=== PATIENT | female | born 1990 | race Caucasian/White ===

== ENCOUNTER → 2017-03-20 | Outpatient (CLI) | payer MEDICAID | LOC: HPND 07:46 | PROVIDERS: ATTEND Obstetrics & Gynecology | DX: O35.8XX0 Maternal care for other (suspected) fetal abnormality and damage, not applicable or unspecified (principal); O26.892 Other specified pregnancy related conditions, second trimester; I27.0 Primary pulmonary hypertension; Z3A.23 23 weeks gestation of pregnancy | CPT/HCPCS: 76811 ==

== ENCOUNTER 2017-07-04 07:19 | Inpatient (IN) | payer MEDICAID ==
[2017-07-04] VITALS (37 sets, daily range): BP systolic 115–148; BP diastolic 50–93; PULSE 71–104; RESP 18–20; TEMP 97.6–98.5
[~2017-07-04] VITALS: Ht 162.6 cm; Wt 81.0 kg
[2017-07-04] MEDS ORDERED: LACTATED RINGER'S 1000 ML INJ 1,000 ML IV PRN (08:20)
[2017-07-04] MEDS ORDERED: SODIUM CHLORID 0.9% 500 ML INJ 500 ML IV PRN (08:30)
[2017-07-04] MEDS ORDERED: ONDANSETRON HCL 4 MG/2 ML VIAL IV PUSH PRN (08:30)
[2017-07-04] MEDS ORDERED: OXYTOCIN 30 UNITS-500ML PREMIX 500 ML IV SCH (08:30)
[2017-07-04] MEDS ORDERED: MINERAL OIL 10 ML VIAL TOPICAL PRN (08:30)
[2017-07-04] MEDS ORDERED: LIDOCAINE HCL 1% 50 ML VIAL I-DERMAL PRN (08:30)
[2017-07-04] MEDS ORDERED: PENICILLIN G POTASSIUM INJ 5,000,000 UNITS in SODIUM CHLORIDE 0.9% INJ 100 ML IV ONE (08:30)
[2017-07-04] MEDS ORDERED: LIDOCAINE HCL 1% 50 ML VIAL INFIL PRN (08:30)
[2017-07-04] MEDS ORDERED: OXYTOCIN 30 UNITS-500ML PREMIX 500 ML IV ONE (08:30)
[2017-07-04] MEDS ORDERED: CITRIC ACID-SODIUM CITRATE LIQ 30 ML UDC PO SCH (08:30)
--- NOTE | 2017-07-04 08:30 | PD ---
HPI Chief Complaint SROM Date Seen: Jul 04, 2017 Time Seen: 08:23 Travel History International Travel<30 Days: No Contact w/Intl Traveler<30Days: No Known Affected Area: No History of Present Illness HPI Pt is a 27y/o G1 @ 38.6wks. She has PNC with Dr. Bain. She presents to the hospital with c/o ROM this morning at 5am, clear fluid. Infrequent ctx. No VB. +FM. 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 Weeks Gestation: 38 Para: 0 : 1 History Past Medical History Narrative Medical HSV+ serology Obstetric History Obstetric History 1. current Past Surgical History Surgical History: No Previous Surgery Family History Family History: Negative Social History Alcohol Use: No Tobacco Use: No Substance Abuse: No Allergies-Medications (Allergen,Severity, Reaction): Coded Allergies: No Known Allergies (Verified Allergy, Unknown, 07/04/17) Review of Systems Except as stated in HPI: all other systems reviewed are Neg Physical Exam Narrative General: well developed, well nourished, no acute distress HEENT: normocephalic atraumatic, extraocular movements intact, neck supple Abdomen: soft, gravid, nontender, nondistended Uterus: fundus term Extremities: full range of motion Skin: normal coloration, no rashes, no suspicious skin lesions noted Neurologic: cranial nerves 2-12 grossly intact, normal muscle tone, normal gait Psychiatric: normal mood and affect, appropriate FHTs: 130, +accels, no decels, moderate variability, reactive [place]: ctx q7-8m Cvx: 3-4//-2, +amnisure Data Data Vital Signs Reviewed: Yes Orders Orders Ob (2e) Additional Admit Info (07/04/17 08:00) Vital Signs (Adult) .ON ADMISSION (07/04/17 08:20) ^ Labor Status (07/04/17 08:20) ^ Non Stress Test (07/04/17 08:20) Pamg-1 Test .ONCE (07/04/17 08:20) Admit To Inpatient (07/04/17 ) Vital Signs (Adult) .Per protocol (07/04/17 08:20) Heart (07/04/17 08:20) Amnioinfusion (07/04/17 08:20) Urinary Catheter Management .ONCE (07/04/17 08:20) Diet Liquid (07/04/17 Breakfast) Lactated Ringer's 1000 Ml Inj (Lr 1000 M (07/04/17 08:20) Lactated Ringer's 1000 Ml Inj (Lr 1000 M (07/04/17 08:20) Sodium Chlorid 0.9% 500 Ml Inj (Ns 500 M (07/04/17 08:30) Sodium Chlor 0.9% 1000 Ml Inj (Ns 1000 M (07/04/17 08:40) Lidocaine 1% Inj (50 Ml) (Xylocaine 1% I (07/04/17 08:30) Citric Acid-Sodium Citrate Liq (Bicitra (07/04/17 08:30) Ondansetron Inj (Zofran Inj) (07/04/17 08:30) Fentanyl Inj (Fentanyl Inj) (07/04/17 08:30) Fentanyl Inj (Fentanyl Inj) (07/04/17 08:30) Penicillin G Potassium Inj (Pfizerpen-G (07/04/17 08:30) Penicillin G Potassium Inj (Pfizerpen-G (07/04/17 12:30) Complete Blood Count With Diff (07/04/17 08:20) Hold Clot (07/04/17 08:20) Abo/Rh Blood Type (07/04/17 08:20) Urinalysis - C+S If Indicated (07/04/17 08:20) Drug Screen, Random Urine (07/04/17 08:20) Resp Oxygen Non Rebreathe Mask (07/04/17 ) ^ Epidural / Intrathecal Infus (07/04/17 08:20) Oxytocin 30 Units-500ml Premix (Pitocin (07/04/17 08:30) Lidocaine 1% Inj (50 Ml) (Xylocaine 1% I (07/04/17 08:30) Light Mineral Oil (Muri-Lube Oil) (07/04/17 08:30) Inpatient Certification (07/04/17 ) ^ Non Stress Test (07/04/17 08:20) Response To Medication .Post New Med Administration, Reaction (07/04/17 08:20) ^ Discontinue Medication (07/04/17 08:20) Oxytocin Drip (2-2-30) (07/04/17 08:30) Group B Strep: Positive MDM Plan 27y/o G1 @ 38.6wks with PROM, GBS+, HSV+ serology. -- cat 1 tracing -- cvx 3-/2 -- admit to L&D -- CLD, epidural/iraheta PRN -- pitocin augmentation -- PCN for GBS -- no h/o outbreaks, no lesions or prodromal symptoms Dr. Bain (rehab director occupational therapist) notified of pt status and agrees with the plan of care. Courtesy orders placed. She will assume care of the patient. Diagnosis Diagnosis: Primary Impression: 38 weeks gestation of Additional Impressions: PROM with onset of labor within 24 hours of rupture GBS (group B Streptococcus carrier), +RV culture, currently HSV-2 seropositive Kay Simpson MD Jul 04, 2017 08:30
[2017-07-04] MEDS ORDERED: SODIUM CHLOR 0.9% 1000 ML INJ 1,000 ML IV PRN (08:40)
[2017-07-04 08:50] LABS: BACTERIA, URINE RARE /hpf; BLOOD, URINE NEG (NEG); COMMENT (UR) CULT NOT INDICATED; CULTURE IF INDICATED CULT NOT INDICATED; GLUCOSE,URINE NEG (NEG); KETONE, URINE NEG (NEG); NITRITE,URINE NEG (NEG); PH, URINE 6.5 (5.0-8.5); SQUAMOUS EPITHELIAL CELL URINE 4 /hpf (0-5); URINE COLOR LIGHT-YELLOW (YELLW/STRAW)
[2017-07-04 08:50] LABS: BASOPHIL # 0.1 TH/MM3 (0-0.2); BASOPHIL % 0.7 % (0.0-2.0); EOSINOPHIL # 0.1 TH/MM3 (0-0.4); HEMATOCRIT 38.3 % (35.0-46.0); HEMO FLAGS DIFF FINAL; LYMPH % 24.6 % (9.0-44.0); MEAN CELL VOLUME 88.9 FL (80.0-100.0); MEAN CORPUSCULAR HEMOGLOBIN 29.8 PG (27.0-34.0); MEAN CORPUSCULAR HGB CONC 33.5 % (32.0-36.0); MONO % 7.8 % (0.0-8.0); NEUT % 65.9 % (16.0-70.0); PLATELET COUNT 138 TH/MM3 (150-450); RED BLOOD COUNT 4.31 MIL/MM3 (4.00-5.30); RED CELL DISTRIBUTION WIDTH 14.2 % (11.6-17.2); WHITE BLOOD COUNT 12.2 TH/MM3 (4.0-11.0)
[2017-07-04] MEDS: LACTATED RINGER'S 1000 ML INJ 1,000 ML IV SCH ×2 (08:52→13:02)
[2017-07-04] MEDS ORDERED: PRENTAB7 (08:56)
[2017-07-04] MEDS ORDERED: VALT500T PO (08:56)
[2017-07-04] MEDS ORDERED: fentaNYL 2MCG-BUPIV 0.125% INJ 100 ML ONE (12:18)
[2017-07-04] MEDS: PENICILLIN G POTASSIUM INJ 2,500,000 UNITS in SODIUM CHLORIDE 0.9% INJ 100 ML IV SCH ×3 (13:02→20:57)
[2017-07-04] MEDS ORDERED: NO SYSTEM NARCOTICS PRN (13:30)
[2017-07-04] MEDS ORDERED: ePHEDrine/NS 25 MG/5 ML SYR IV PUSH PRN (13:30)
[2017-07-04] MEDS ORDERED: DO NOT ADMINISTER ANTICOAGULANTS PRN (13:30)
[2017-07-04] MEDS ORDERED: fentaNYL 2MCG-BUPIV 0.125% 100 ML EPIDURAL SCH (13:30)
[2017-07-05] VITALS (17 sets, daily range): BP systolic 99–153; BP diastolic 66–91; PULSE 77–118; RESP 18–20; TEMP 97.7–98
--- NOTE | 2017-07-05 00:40 | PD.OB.DELI ---
Weeks gestation: 39 Gest age assessed date: Jul 05, 2017 Gest age assessed time: 00:05 Pt started active labor?: Yes Medical induction of labor?: No Artificial rupture of membrane: No Anesthesia: Epidural Episiotomy: None Vaginal Delivery: Normal Presentation: Occiput anterior Nuchal Cord: None Delayed cord clamping (45 sec): Yes Infant: Female Delivery date: Jul 05, 2017 Delivery time: 00:17 One Minute : 8 Five Minute : 9 Weight: 6#12oz Placenta: Spontaneous delivery, Intact, 3 vessel cord Laceration: Vaginal laceration, 2 deg Repair: Chromic running Estimated blood loss: 200 mL Additional Information uncomplicated of healthy infant female "Beatriz"Marcia Bain MD Jul 05, 2017 00:40
[2017-07-05] MEDS ORDERED: IBUP-232 PO (00:41)
[2017-07-05] MEDS ORDERED: DOCUSATE SODIUM 50 MG/SENNA 8.6 MG TAB PO PRN (00:45)
[2017-07-05] MEDS ORDERED: SODIUM CHLORIDE 0.9% FLUSH 10 ML FLUSH IV FLUSH SCH (00:45)
[2017-07-05] MEDS ORDERED: ALUMINUM/MAGNESIUM/SIMETH 30 ML CUP PO PRN (00:45)
[2017-07-05] MEDS ORDERED: ONDANSETRON ODT 4 MG TAB PO PRN (00:45)
[2017-07-05] MEDS ORDERED: oxyCODONE/ACETAMINOPHEN 5 MG/325 MG TAB PO PRN (00:45)
[2017-07-05] MEDS ORDERED: ZOLPIDEM TARTRATE 5 MG TAB PO PRN (00:45)
[2017-07-05] MEDS ORDERED: ACETAMINOPHEN 325 MG TAB PO PRN (00:45)
[2017-07-05] MEDS ORDERED: SODIUM CHLORIDE 0.9% FLUSH 10 ML FLUSH IV FLUSH PRN (00:45)
[2017-07-05] MEDS ORDERED: OXYTOCIN 30 UNITS-500ML PREMIX 500 ML IV SCH (00:45)
[2017-07-05] MEDS: BENZOCAINE 20% TOPICAL SPRAY 60 ML CAN TOPICAL PRN (03:48)
[2017-07-05] MEDS: WITCH HAZEL 50%/GLYCERIN 12.5% 40 PAD JAR TOPICAL PRN (03:48)
[2017-07-05] MEDS: IBUPROFEN 800 MG TAB PO PRN ×3 (03:51→21:32)
--- NOTE | 2017-07-05 09:55 | HHI.OB ---
Subjective Post Day: 0 Remarks s/p uncomplicated just after midnight this AM Objective Vitals/I&O Vital Signs Date Time Temp Pulse Resp B/P (MAP) Pulse Ox O2 Delivery O2 Flow Rate FiO2 07/05/17 08:00 98.0 77 18 129/80 (96) 07/05/17 02:35 18 07/05/17 02:31 101 131/66 (87) 07/05/17 02:15 94 126/74 (91) 07/05/17 02:15 18 07/05/17 02:00 92 18 101/67 (78) 07/05/17 01:45 118 18 132/91 (105) 07/05/17 01:30 100 124/89 (101) 07/05/17 01:30 18 07/05/17 01:15 99 18 126/79 (95) 07/05/17 01:01 102 99/83 (88) 07/05/17 00:53 18 07/05/17 00:45 100 146/82 (103) 07/05/17 00:42 97.9 07/05/17 00:40 18 07/05/17 00:30 107 150/88 (108) 07/05/17 00:27 103 153/80 (104) 07/05/17 00:15 20 07/04/17 23:45 20 07/04/17 23:32 86 146/50 (82) 07/04/17 23:14 18 07/04/17 23:00 92 146/87 (106) 07/04/17 22:45 98.5 07/04/17 22:44 18 07/04/17 22:30 84 148/83 (104) 07/04/17 22:00 98 138/87 (104) 07/04/17 21:30 97 128/88 (101) 07/04/17 21:29 18 07/04/17 21:00 87 143/90 (107) 07/04/17 20:45 98.2 18 07/04/17 20:30 92 136/86 (103) 07/04/17 20:09 18 07/04/17 20:00 84 137/78 (97) 07/04/17 19:33 18 07/04/17 19:30 84 140/91 (107) 07/04/17 19:02 97.6 18 07/04/17 19:00 87 140/93 (109) 07/04/17 18:57 18 07/04/17 14:30 93 136/84 (101) 07/04/17 14:00 104 115/60 (78) 07/04/17 13:25 72 127/78 (94) 07/04/17 13:20 77 133/76 (95) 07/04/17 13:15 87 129/84 (99) 07/04/17 13:10 80 127/79 (95) 07/04/17 13:09 98.0 18 07/04/17 13:05 87 140/81 (100) 07/04/17 13:03 18 07/04/17 13:00 79 07/04/17 13:00 78 131/71 (91) 07/04/17 12:56 73 145/87 (106) 07/04/17 12:55 76 07/04/17 12:50 80 07/04/17 11:31 78 145/82 (103) 07/04/17 10:49 97.7 71 18 136/83 (100) 07/04/17 10:02 75 134/74 (94) Objective Remarks GENERAL: Well-nourished, well-developed patient. Tired; hasn't slept much yet since delivery. CARDIOVASCULAR: Regular rate and rhythm without murmurs, gallops, or rubs. RESPIRATORY: Breath sounds equal bilaterally. No accessory muscle use. ABDOMEN/GI: Abdomen soft, non-tender. Fundus: Firm, non-tender at umbilicus. GENITOURINARY: Light to moderate bleeding. EXTREMITIES: No cyanosis or edema, non-tender, without signs of DVT. Medications and IVs Current Medications Medications (Trade) Dose Ordered Sig/Ervin Route Start Time Stop Time Status Last Admin (Flu (Quadrivalent) Vaccine Inj) 0.5 ml ONCE ONCE IM 07/05/17 10:00 07/05/17 10:01 (NS Flush) 2 ml BID IV FLUSH 07/05/17 00:45 (NS Flush) 2 ml UNSCH PRN IV FLUSH 07/05/17 00:45 (Tylenol) 650 mg Q4H PRN PO 07/05/17 00:45 07/05/17 03:51 (Motrin) 800 mg Q8H PRN PO 07/05/17 00:45 07/05/17 03:51 (Percocet 5-325 Mg) 1 tab Q4H PRN PO 07/05/17 00:45 (Percocet 5-325 Mg) 2 tab Q4H PRN PO 07/05/17 00:45 (Americaine 20% Top Spr) 1 spray Q4H PRN TOPICAL 07/05/17 00:45 07/05/17 03:48 (Tucks Pads) 1 applic QID PRN TOPICAL 07/05/17 00:45 07/05/17 03:48 (Aurora-Colace) 2 tab Q12H PRN PO 07/05/17 00:45 (Ambien) 5 mg HS PRN PO 07/05/17 00:45 (M-M-R Ii Inj) 0.5 ml ONCE ONCE SQ 07/05/17 16:00 07/05/17 16:01 (Boostrix Inj) 0.5 ml ONCE ONCE IM 07/05/17 16:00 07/05/17 16:01 (Mag-Al Plus Susp Liq) 15 ml Q8H PRN PO 07/05/17 00:45 (Zofran Odt) 4 mg Q6H PRN PO 07/05/17 00:45 Assessment/Plan Problem List: (1) (spontaneous vaginal delivery) ICD Codes: O80 - Encounter for full-term uncomplicated delivery Status: Acute Assessment and Plan PPD#0 supportive care catheter just removed, pt has not yet voided ambulate, advance diet, shower later today if desired anticipate d/c to home tmrw afternoon Discharge Planning routine Marcia Bain MD Jul 05, 2017 09:55
[2017-07-05] MEDS ORDERED: INFLUENZA VIRUS VACCINE (QUADRIVALENT) 0.5 ML SYR IM ONE (10:00)
[2017-07-05] MEDS: oxyCODONE/ACETAMINOPHEN 5 MG/325 MG TAB PO PRN ×2 (11:51→21:33)
[2017-07-05] MEDS ORDERED: DIPHTH/TETANUS/ACEL PERTUSSIS (BOOSTER) 0.5 ML VIAL/PFS IM ONE (16:00)
[2017-07-05] MEDS ORDERED: MEASLES, MUMPS, RUBELLA VACCINE 0.5 ML VIAL SQ ONE (16:00)
[2017-07-06] MEDS: IBUPROFEN 800 MG TAB PO PRN ×2 (04:54→13:01)
[2017-07-06] MEDS: oxyCODONE/ACETAMINOPHEN 5 MG/325 MG TAB PO PRN (04:55)
--- NOTE | 2017-07-06 09:23 | HHI.DCPOC ---
Discharge Care Plan Diagnosis: (1) (spontaneous vaginal delivery) Your Health Problems Are: Vaginal delivery Report Symptoms to Your Doctor -Temperature above 100.5 degrees -Redness, of incision or excessive or foul smelling drainage -Unusual pain or calf pain -Increased vaginal bleeding -Painful or difficulty urinating -Feelings of extreme sadness or anxiety after 2 weeks Goals to Promote Your Health * To prevent worsening of your condition and complications * To maintain your health at the optimal level Directions to Meet Your Goals Take your medications as prescribed Follow your dietary instruction Follow activity as directed Ensure plenty of rest for recovery Drink fluids for hydration Keep your appointments as scheduled Take your immunizations and boosters as scheduled If your symptoms worsen call your PCP, if no PCP go to Urgent Care Center or Emergency Room Smoking is Dangerous to Your Health. Avoid second hand smoke Call the 24-hour crisis hotline for domestic abuse at Marcia Bain MD Jul 06, 2017 09:23
--- NOTE | 2017-07-06 09:23 | HHI.OB ---
Subjective Post Day: 1 Remarks s/p uncomplicated FT of healthy female just after midnight 07/05/17 Objective Vitals/I&O Vital Signs Date Time Temp Pulse Resp B/P (MAP) Pulse Ox O2 Delivery O2 Flow Rate FiO2 07/05/17 20:00 97.7 86 18 133/91 (105) Objective Remarks GENERAL: Well-nourished, well-developed patient. . CARDIOVASCULAR: Regular rate and rhythm without murmurs, gallops, or rubs. RESPIRATORY: Breath sounds equal bilaterally. No accessory muscle use. ABDOMEN/GI: Abdomen soft, non-tender. Fundus: Firm, non-tender at umbilicus. GENITOURINARY: Light bleeding. EXTREMITIES: No cyanosis or edema, non-tender, without signs of DVT. Medications and IVs Current Medications Medications (Trade) Dose Ordered Sig/Ervin Route Start Time Stop Time Status Last Admin (NS Flush) 2 ml BID IV FLUSH 07/05/17 00:45 (NS Flush) 2 ml UNSCH PRN IV FLUSH 07/05/17 00:45 (Tylenol) 650 mg Q4H PRN PO 07/05/17 00:45 07/05/17 03:51 (Motrin) 800 mg Q8H PRN PO 07/05/17 00:45 07/06/17 04:54 (Percocet 5-325 Mg) 1 tab Q4H PRN PO 07/05/17 00:45 07/06/17 04:55 (Percocet 5-325 Mg) 2 tab Q4H PRN PO 07/05/17 00:45 (Americaine 20% Top Spr) 1 spray Q4H PRN TOPICAL 07/05/17 00:45 07/05/17 03:48 (Tucks Pads) 1 applic QID PRN TOPICAL 07/05/17 00:45 07/05/17 03:48 (Aurora-Colace) 2 tab Q12H PRN PO 07/05/17 00:45 07/05/17 21:33 (Ambien) 5 mg HS PRN PO 07/05/17 00:45 (Mag-Al Plus Susp Liq) 15 ml Q8H PRN PO 07/05/17 00:45 (Zofran Odt) 4 mg Q6H PRN PO 07/05/17 00:45 Assessment/Plan Problem List: (1) (spontaneous vaginal delivery) ICD Codes: O80 - Encounter for full-term uncomplicated delivery Status: Acute Assessment and Plan PPD#1 doing well, lochia lightening, ambulating, voiding, tolerating diet, meeting all d/c criteria office f/u in 2 weeks Discharge Planning routine Marcia Bain MD Jul 06, 2017 09:23
[2017-07-06] MEDS: BENZOCAINE 20% TOPICAL SPRAY 60 ML CAN TOPICAL PRN (10:07)
[2017-07-06] MEDS: WITCH HAZEL 50%/GLYCERIN 12.5% 40 PAD JAR TOPICAL PRN (10:07)
[2017-07-06] MEDS ORDERED: DIPHTH/TETANUS/ACEL PERTUSSIS (BOOSTER) 0.5 ML VIAL/PFS IM ONE (12:30)
[2017-07-06] MEDS ORDERED: INFLUENZA VIRUS VACCINE (QUADRIVALENT) 0.5 ML SYR IM ONE (12:30)
== END 2017-07-06 13:49 | disposition home or self-care (01) | DRG 774 ==
LOC: HOBED 07:19 → H2EA 08:03 → H1EA 07-05 02:56
PROVIDERS: ADMIT Obstetrics & Gynecology; ATTEND Obstetrics & Gynecology
PROC: 3E0R3BZ Introduction of Anesthetic Agent into Spinal Canal, Percutaneous Approach (ICD-10-PCS; 2017-07-04)
PROC: 00HU33Z Insertion of Infusion Device into Spinal Canal, Percutaneous Approach (ICD-10-PCS; 2017-07-04)
PROC: 10E0XZZ Delivery of Products of Conception, External Approach (ICD-10-PCS; principal; 2017-07-05)
PROC: 0KQM0ZZ Repair Perineum Muscle, Open Approach (ICD-10-PCS; 2017-07-05)
DX: O42.02 Full-term premature rupture of membranes, onset of labor within 24 hours of rupture (principal); O98.32 Other infections with a predominantly sexual mode of transmission complicating childbirth; A60.00 Herpesviral infection of urogenital system, unspecified; O99.824 Streptococcus B carrier state complicating childbirth; O70.1 Second degree perineal laceration during delivery; Z3A.39 39 weeks gestation of pregnancy; Z37.0 Single live birth; Z23 Encounter for immunization
CPT/HCPCS: 80307; 81001; 84112; 85025; 86900; 86901; 90686; 90715; J2540; J2590; J7120; Q2038